=== PATIENT | male | born 1955 | race Asian ===

== ENCOUNTER → 2021-05-09 | Outpatient (CLI) | payer MEDICARE, BC | END | disposition home or self-care (01) | LOC: RADMN 12:05 | PROVIDERS: ATTEND Internal Medicine Geriatric Medicine | DX: S43.421A Sprain of right rotator cuff capsule, initial encounter (principal); S43.422A Sprain of left rotator cuff capsule, initial encounter; M19.011 Primary osteoarthritis, right shoulder; M19.012 Primary osteoarthritis, left shoulder; I70.0 Atherosclerosis of aorta; M79.641 Pain in right hand; M54.50 Low back pain, unspecified; X58.XXXA Exposure to other specified factors, initial encounter; Y93.89 Activity, other specified; Y92.89 Other specified places as the place of occurrence of the external cause; Y99.8 Other external cause status; M51.37 Other intervertebral disc degeneration, lumbosacral region | CPT/HCPCS: 72100; 73030-TC; 73130-TC ==